=== PATIENT | female | born 1990 | race Caucasian/White ===

== ENCOUNTER 2019-05-15 11:56 | Emergency (ER) | payer BC ==
[2019-05-15] MEDS ORDERED: IBUPROFEN 400 MG TAB ONE (12:15)
[2019-05-15] MEDS ORDERED: NA CHLORIDE 0.9% 2,000 ML ONE (12:16)
[2019-05-15 12:29] LABS: Absolute Lymphocytes (CBC) 1.3 K/uL (0.7-4.9); Basophils % 0.3 % (0-1.3); Lymphocytes % 11.6 % (15.3-44.8); MPV 8.7 fL (7.6-11.3); RBC Red Blood Cell Count 4.09 M/uL (3.86-4.86)
[2019-05-15 12:34] LABS: Urine Blood 1+ (NEG); Urine Glucose NEGATIVE (NEG); Urine Protein 2+ (NEG); Urine Specific Gravity 1.015 (1.005-1.030)
[2019-05-15] MEDS ORDERED: CEFTRIAXONE/SWI 1gm 1 GM/10 ML SYR ONE (12:35)
[2019-05-15 12:47] LABS: ALT/SGPT 28 U/L (12-78); AST/SGOT 20 U/L (15-37); Albumin 3.6 g/dL (3.4-5.0); Alkaline Phosphatase 51 U/L (45-117); BUN Blood Urea Nitrogen 8 mg/dL (7-18); Bicarbonate 25 mmol/L (21-32); Bilirubin Direct 0.1 mg/dL (0-0.2); Bilirubin Total 0.3 mg/dL (0.2-1.0); CKMB Creatine Kinase MB < 1.0 ng/mL (0.3-3.6); Creatine Phosphokinase 45 U/L (26-192); Glucose Level 79 mg/dL (74-106); Lipase 127 U/L (73-393); Potassium 3.3 mmol/L (3.5-5.1); Protein, Total 8.9 g/dL (6.4-8.2); Sodium Level 137 mmol/L (136-145); Troponin (Emerg Dept Use Only) < 0.02 ng/mL (0.0-0.045)
[2019-05-15 12:52] LABS: Protime INR 1.07
--- NOTE | 2019-05-15 12:52 | RAD REPORT ---
EXAM DESCRIPTION: RAD - Chest Single View - 05/15/2019 12:46 pm CLINICAL HISTORY: FEVER Chest pain. COMPARISON: No comparisons FINDINGS: Portable technique limits examination quality. The lungs are grossly clear. The heart is normal in size. No displaced fractures. IMPRESSION: No acute intrathoracic process suspected.
[2019-05-15 13:03] LABS: Urine Bacteria >50 /HPF (<20); Urine Culture Reflex Order REFLEXED
[2019-05-15 13:04] LABS: Urine Mucus 2+ /HPF (NONE SEEN)
--- NOTE | 2019-05-15 13:21 | RAD REPORT ---
EXAM DESCRIPTION: CTAbdomen Pelvis W Contrast - 05/15/2019 1:13 pm CLINICAL HISTORY: Abdominal pain. r/o pyelonephritis;Flank pain COMPARISON: No comparisons TECHNIQUE: Biphasic CT imaging of the abdomen and pelvis was performed with 100 ml non-ionic IV cont rast. All CT scans are performed using dose optimization technique as appropriate and may include automated exposure control or mA/KV adjustment according to patient size. FINDINGS: The lung bases are clear. The liver, spleen, pancreas, adrenal glands are within normal limits. Areas of edema are seen in the cortex of both kidneys, worse on the right, compatible with bilateral pyelonephritis. No perinephric abscess seen. No bowel obstruction, free air, free fluid or abscess. The appendix is normal. No evidence of signi ficant lymphadenopathy. No suspicious bony findings. IMPRESSION: Bilateral pyelonephritis is seen without abscess, worse on the right.
--- NOTE | 2019-05-15 13:45 | ER ---
Nurse's Notes [facility] Name: Judith Chaves Age: 28 yrs Sex: Female : 1990 Arrival Date: 05/15/2019 Time: 11:58 Bed 20 Private MD: Diagnosis: Urinary tract infection, site not specified;Acute tubulo-interstitial nephritis Presentation: 05/15 12:06 Presenting complaint: Low back pain that radiates to right flank, chills, foul smelling hb urine, and fever x 3-4 days. TMAX 101. Sent from [facility], reports "flu was negative but my urine was dirty.". Transition of care: patient was not received from another setting of care. Onset of symptoms was May 12, 2019. Risk Assessment: Do you want to hurt yourself or someone else? Patient reports no desire to harm self or others. Initial Sepsis Screen: Does the patient meet any 2 criteria? Temp <36.0*C (96.8*F)) or > 38.3*C (100.9*F). HR > 90 bpm. Yes Does the patient have a suspected source of infection? Yes: Dysuria/Frequency/Urgency/UTI. Care prior to arrival: None. 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 - Social history:: Smoking status: Patient/guardian denies using tobacco. - Ebola Screening: : No symptoms or risks identified at this time. Screenin:08 Abuse screen: Denies threats or abuse. Denies injuries from another. Nutritional hb screening: No deficits noted. Tuberculosis screening: No symptoms or risk factors identified. Fall Risk None identified. Assessment: 12:05 Reassessment: CODE SEPSIS CALLED. hb 12:49 Reassessment: LACTATE WNL, CODE SEPSIS CONCLUDED. bp 13:00 Reassessment: CT COMPLETED, RESULTS PENDING. bp 13:48 Reassessment: D/C ON HOLD FOR IVF COMPLETION. bp 14:52 Reassessment: PT D/C HOME AMBULATORY WITH UTI. bp Vital Signs: 12:04 BP 163 / 88; Pulse 153; Resp 20; Temp 102(O); Pulse Ox 100% on R/A; Weight 56.7 kg; hb Height 5 ft. 6 in. (167.64 cm); Pain 8/10; 12:30 BP 133 / 83; Pulse 129; Resp 24; Pulse Ox 100% ; bp 13:29 BP 112 / 78; Pulse 109; Resp 17; Temp 99.8; Pulse Ox 100% ; bp 14:52 BP 100 / 61; Pulse 99; Resp 19; Temp 98.9; Pulse Ox 100% ; bp 12:04 Body Mass Index 20.18 (56.70 kg, 167.64 cm) hb ED Course: 11:58 Patient arrived in ED. ag5 12:00 Edwin Gracia, ROMA is Primary Nurse. bp 12:03 [facility] Fry [facility]-C [facility]. kb 12:03 Percy Mcnair MD is Attending Physician. kb 12:06 Arm band placed on. hb 12:07 Patient has correct armband on for positive identification. Placed in gown. Bed in low hb position. Call light in reach. Side rails up X 1. 12:08 Triage completed. hb 12:12 Inserted saline lock: 20 gauge in right antecubital area, using aseptic technique. hb Blood collected. 12:12 Initial lab(s) drawn, by me, First set of blood cultures drawn by me. hb 12:36 Radiology exam delayed due to lab results not completed at this time. (BUN/Creatinine). vm2 12:40 EKG done, by crime scene technician. reviewed by Mila COUCH. at1 12:49 Chest Single View XRAY In Process Unspecified. EDMS 13:14 CT Abd/Pelvis - IV Contrast Only In Process Unspecified. EDMS 13:36 Urine --Ancillary (enter results) Sent. bp 13:36 Urine Dipstick--Ancillary (enter results) Sent. bp 14:52 No provider procedures requiring assistance completed. IV discontinued, intact, bp bleeding controlled, No redness/swelling at site. Pressure dressing applied. Administered Medications: 12:15 Drug: NS 0.9% (30 ml/kg) 30 ml/kg Route: IV; Rate: bolus; Site: right antecubital; bp 14:54 Follow up: IV Status: Completed infusion; IV Intake: 1700ml bp 12:15 Drug: Ibuprofen 600 mg Route: PO; bp 13:29 Follow up: Response: Temperature is decreased bp 12:30 Drug: Rocephin 1 grams Route: IV; Rate: calculated rate; Site: right antecubital; bp 14:54 Follow up: IV Status: Completed infusion; IV Intake: 50ml bp Intake: 14:54 IV: 50ml; Total: 50ml. bp 14:54 IV: 1700ml; Total: 1750ml. bp Outcome: 13:43 Discharge ordered by MD. shukla 14:52 Discharged to home ambulatory. bp 14:52 Condition: stable 14:52 Discharge instructions given to patient, Instructed on discharge instructions, follow up and referral plans. medication usage, Demonstrated understanding of instructions, follow-up care, medications, Prescriptions given X 1. 14:54 Patient left the ED. bp Signatures: Dispatcher [employer] EDMS Mila Fry, PAPER PRODUCTS MACHINE OPERATOR-C PAPER PRODUCTS MACHINE OPERATOR-Nora Erazo, equipment maintenance tech EKG Tat1 Reny Romeo RN RN Brittany Cleary 2 Edwin Gracia RN RN bp Derek Shirley ag5 Corrections: (The following items were deleted from the chart) 12:16 12:04 BP 163 / 88; Pulse 148bpm; Resp 20bpm; Pulse Ox 100% RA; Temp 102F Oral; 56.7 kg; hb Height 5 ft. 6 in.; BMI: 20.1; Pain 8/10; hb 13:35 13:29 BP 112 / 78; Pulse 109bpm; Resp 17bpm; Pulse Ox 100%; bp bp
--- NOTE | 2019-05-15 13:45 | EDPHYS ---
Physician Documentation [facility] Name: Judith Chaves Age: 28 yrs Sex: Female : 1990 Arrival Date: 05/15/2019 Time: 11:58 Bed 20 Private MD: ED Physician Percy Mcnair HPI: 05/15 12:35 This 28 yrs old Female presents to ER via Ambulatory with complaints of Fever, Low Back kb Pain, Urinary Problem. 12:36 The patient complains of pain in the left flank and right flank. The pain does not kb radiate. Onset: The symptoms/episode began/occurred 3 day(s) ago. Modifying factors: The symptoms are alleviated by nothing. the symptoms are aggravated by palpation/percussion. Associated signs and symptoms: Pertinent positives: dysuria, fever. Severity of pain: At its worst the pain was moderate in the emergency department the pain is unchanged. The patient has not experienced similar symptoms in the past. The patient has not recently seen a physician. 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 - Social history:: Smoking status: Patient/guardian denies using tobacco. - Ebola Screening: : No symptoms or risks identified at this time. ROS: 12:33 ENT: Negative for injury, pain, and discharge, Neck: Negative for injury, pain, and kb swelling, Cardiovascular: Negative for chest pain, palpitations, and edema, Respiratory: Negative for shortness of breath, cough, wheezing, and pleuritic chest pain, Abdomen/GI: Negative for abdominal pain, nausea, vomiting, diarrhea, and constipation, MS/Extremity: Negative for injury and deformity, Skin: Negative for injury, rash, and discoloration, Neuro: Negative for headache, weakness, numbness, tingling, and seizure. 12:33 Constitutional: Positive for body aches, chills, fatigue, fever, malaise. 12:33 : Positive for urinary symptoms, flank pain, burning with urination, foul smelling urine. Exam: 12:35 Constitutional: This is a well developed, well nourished patient who is awake, alert, kb and in no acute distress. Head/Face: Normocephalic, atraumatic. ENT: Nares patent. No nasal discharge, no septal abnormalities noted. Tympanic membranes are normal and external auditory canals are clear. Oropharynx with no redness, swelling, or masses, exudates, or evidence of obstruction, uvula midline. Mucous membranes moist. Neck: Trachea midline, no thyromegaly or masses palpated, and no cervical lymphadenopathy. Supple, full range of motion without nuchal rigidity, or vertebral point tenderness. No Meningismus. Chest/axilla: Normal chest wall appearance and motion. Nontender with no deformity. No lesions are appreciated. Cardiovascular: Regular rate and rhythm with a normal S1 and S2. No gallops, murmurs, or rubs. Normal PMI, no JVD. No pulse deficits. Respiratory: Lungs have equal breath sounds bilaterally, clear to auscultation and percussion. No rales, rhonchi or wheezes noted. No increased work of breathing, no retractions or nasal flaring. Abdomen/GI: Soft, non-tender, with normal bowel sounds. No distension or tympany. No guarding or rebound. No evidence of tenderness throughout. Skin: Warm, dry with normal turgor. Normal color with no rashes, no lesions, and no evidence of cellulitis. MS/ Extremity: Pulses equal, no cyanosis. Neurovascular intact. Full, normal range of motion. Neuro: Awake and alert, GCS 15, oriented to person, place, time, and situation. Cranial nerves II-XII grossly intact. Motor strength 5/5 in all extremities. Sensory grossly intact. Cerebellar exam normal. Normal gait. 12:35 Back: CVA tenderness, that is moderate, is noted on the left. 12:35 Back: CVA tenderness, that is mild, is noted on the right. kb Vital Signs: 12:04 BP 163 / 88; Pulse 153; Resp 20; Temp 102(O); Pulse Ox 100% on R/A; Weight 56.7 kg; hb Height 5 ft. 6 in. (167.64 cm); Pain 8/10; 12:30 BP 133 / 83; Pulse 129; Resp 24; Pulse Ox 100% ; bp 13:29 BP 112 / 78; Pulse 109; Resp 17; Temp 99.8; Pulse Ox 100% ; bp 14:52 BP 100 / 61; Pulse 99; Resp 19; Temp 98.9; Pulse Ox 100% ; bp 12:04 Body Mass Index 20.18 (56.70 kg, 167.64 cm) hb MDM: 12:03 Patient medically screened. kb 12:34 Data reviewed: vital signs, nurses notes. Data interpreted: Pulse oximetry: on room air kb is 100 %. Interpretation: normal. 13:41 Counseling: I had a detailed discussion with the patient and/or guardian regarding: the kb historical points, exam findings, and any diagnostic results supporting the discharge/admit diagnosis, lab results, radiology results, the need for outpatient follow up, a family practitioner, to return to the emergency department if symptoms worsen or persist or if there are any questions or concerns that arise at home. 13:42 ED course: Discussed outpatient antibiotics with pt. Pt in agreement with that plan of kb care and will return for worsening symptoms for IV antibiotics. Pt is not in any distress, is nontoxic appearing. . 05/15 12:11 Order name: Basic Metabolic Panel; Complete Time: 12:48 kb 05/15 12:11 Order name: Blood Culture Adult (2) kb 05/15 12:11 Order name: CBC with Diff; Complete Time: 12:32 kb 05/15 12:11 Order name: Ckmb; Complete Time: 12:49 kb 05/15 12:11 Order name: CPK; Complete Time: 12:48 kb 05/15 12:11 Order name: Lactate; Complete Time: 12:49 kb 05/15 12:11 Order name: LFT's; Complete Time: 12:48 kb 05/15 12:11 Order name: Lipase; Complete Time: 12:49 kb 05/15 12:11 Order name: Procalcitonin; Complete Time: 13:30 kb 05/15 12:11 Order name: Protime (+inr); Complete Time: 12:54 kb 05/15 12:11 Order name: Ptt, Activated; Complete Time: 12:54 kb 05/15 12:11 Order name: Troponin (emerg Dept Use Only); Complete Time: 12:49 kb 05/15 12:11 Order name: Urine Microscopic Only; Complete Time: 13:05 kb 05/15 12:33 Order name: Urine Dipstick--Ancillary (enter results) bd 05/15 12:03 Order name: Urine Dipstick-Ancillary (obtain specimen); Complete Time: 12:31 kb 05/15 12:11 Order name: Chest Single View XRAY; Complete Time: 12:56 kb 05/15 12:11 Order name: Accucheck; Complete Time: 12:22 kb 05/15 12:11 Order name: Cardiac monitoring; Complete Time: 12:22 kb 05/15 12:11 Order name: EKG - Nurse/Tech; Complete Time: 12:40 kb 05/15 12:11 Order name: IV Saline Lock - Large Bore; Complete Time: 12:22 kb 05/15 12:11 Order name: Labs collected and sent; Complete Time: 12:22 kb 05/15 12:11 Order name: O2 Per Protocol; Complete Time: 12:15 kb 05/15 12:33 Order name: CT Abd/Pelvis - IV Contrast Only; Complete Time: 13:30 kb 05/15 12:33 Order name: Urine --Ancillary (enter results) 05/15 12:35 Order name: Urine --Ancillary; Complete Time: 12:36 EDMS 05/15 12:35 Order name: Urine Dipstick-Ancillary; Complete Time: 12:36 EDMS 05/15 13:05 Order name: Urine Culture EDVA 05/15 13:20 Order name: Vital Signs; Complete Time: 13:29 kb Administered Medications: 12:15 Drug: NS 0.9% (30 ml/kg) 30 ml/kg Route: IV; Rate: bolus; Site: right antecubital; bp 14:54 Follow up: IV Status: Completed infusion; IV Intake: 1700ml bp 12:15 Drug: Ibuprofen 600 mg Route: PO; bp 13:29 Follow up: Response: Temperature is decreased bp 12:30 Drug: Rocephin 1 grams Route: IV; Rate: calculated rate; Site: right antecubital; bp 14:54 Follow up: IV Status: Completed infusion; IV Intake: 50ml bp Disposition: 05/15/19 13:43 Discharged to Home. Impression: Urinary tract infection, site not specified, Acute tubulo-interstitial nephritis. - Condition is Stable. - Discharge Instructions: Pyelonephritis, Adult, [id number], Urinary Tract Infection, Adult, [id number]. - Prescriptions for Augmentin 875- 125 mg Oral Tablet - take 1 tablet by ORAL route every 12 hours for 10 days; 20 tablet. - Medication Reconciliation Form, Thank You Letter, Antibiotic Education, Prescription Opioid Use, Work release form form. - Follow up: Emergency Department; When: As needed; Reason: Worsening of condition. Follow up: Private Physician; When: 2 - 3 days; Reason: Recheck today's complaints, Continuance of care, Re-evaluation by your physician. Addendum: 05/16/2019 21:11 Co-signature as Attending Physician, Percy Mcnair MD I agree with the assessment and k dr plan of care. Signatures: Dispatcher [employer] EDMS Mila Fry, RETARDER OPERATOR-C RETARDER OPERATOR-Ckb Percy Mcnair MD MD [facility] Reny Romeo, RN RN Edwin Gracia, ROMA RN bp Corrections: (The following items were deleted from the chart) 05/15 14:54 13:43 05/15/2019 13:43 Discharged to Home. Impression: Urinary tract infection, site bp not specified; Acute tubulo-interstitial nephritis. Condition is Stable. Forms are Medication Reconciliation Form, Thank You Letter, Antibiotic Education, Prescription Opioid Use. Follow up: Emergency Department; When: As needed; Reason: Worsening of condition. Follow up: Private Physician; When: 2 - 3 days; Reason: Recheck today's complaints, Continuance of care, Re-evaluation by your physician. kb
[2019-05-15 19:45] VITALS: O2SAT 100
[2019-05-15 19:50] VITALS: BP 100/61; TEMP 98.9
--- NOTE | 2019-05-16 12:45 | EKG ---
Test Date: 2019-05-15 Test Time: 12:28:16 Freight Car Loader: ANNELIESE MEASUREMENT RESULTS: Intervals: Rate: 129 ME: 170 QRSD: 68 QT: 272 QTc: 398 Elizabeth: P: 69 ME: 170 QRS: 79 T: 28 INTERPRETIVE STATEMENTS: Sinus tachycardia Otherwise normal ECG No previous ECG available for comparison Electronically Signed On 05-16-19 12:42:32 HUMAN RESOURCES SERVICES SPECIALIST by Juan Saba
== END 2019-05-15 14:54 | disposition home or self-care (01) ==
LOC: ER 11:56
DX: N39.0 Urinary tract infection, site not specified (principal); N10 Acute pyelonephritis
CPT/HCPCS: 87040 ×2; 87088; 85025; 87086; 80048; 36415; 82550; 81025; 85610; 80076; 83605; 85730; 84484; 82553; 83690; 84145; 74177; 71045; Q9967; J0696; J7030; 81003; 81015; 93005